=== PATIENT | male | born 1995 | race Asian ===

== ENCOUNTER 2016-11-01 02:07 | Emergency (ER) | payer OTHER ==
[~2016-11-01] VITALS: Ht 170.2 cm; Wt 59.5 kg
[2016-11-01 02:10] VITALS: BP 128/80; PULSE 88; TEMP 36.7; O2SAT 98; Ht 170.2 cm; Wt 59.5 kg
--- NOTE | 2016-11-01 02:22 | EMERGENCY ROOM VISIT NOTE ---
History Report prepared by Samanthaibconstantino: Harpreet Ram Under the Supervision of: Dr. Darnell Argueta M.D. First contact with patient: 02:16 Chief Complaint: BITE Stated Complaint: BIT BY SOMETHING ON L ARM History of Present Illness The patient is a 21 year old male who presents to the Emergency Room with complaints of a sudden bite that occurred two hours ago. He states that earlier tonight he finished showering and went to lay down. The patient states that he has to sleep on the floor since he does not have a bed yet for his apartment. He states that after he laid down, he suddenly felt a bite on the posterior portion of his right upper extremity. The patient states that he is unsure what bit him, but is worried that a spider may have bitten him and given him an infection. He states that he did not feel any pain during the incident, but admits he is now sore in the area of the bite. The patient denies any history of infections. Source of History: patient Onset: two hours ago Position: arm (right) Quality: other (erythemous, sore) Timing: other (sudden) Review of Systems See HPI for pertinent positives & negatives. A total of 6 systems reviewed and were otherwise negative. Past Medical & Surgical The patient reports no pertinent medical or surgical history. Family History Patient reports no known family medical history. Social History Smoking Status: Current Some Day Smoker Drug Use: none Marital Status: single Housing Status: lives with roommate Occupation Status: [employer] Current/Historical Medications No Active Prescriptions or Reported Meds Allergies Coded Allergies: No Known Allergies (Unverified , 11/01/16) Physical Exam Vital Signs Date Time Temp Pulse Resp B/P (MAP) Pulse Ox O2 Delivery O2 Flow Rate FiO2 11/01/16 02:10 36.7 88 18 128/80 98 Room Air Physical Exam GENERAL: Patient is well appearing and in no acute distress. HEENT: No acute trauma, normocephalic atraumatic, mucous membranes moist, no nasal congestion, no scleral icterus. NECK: No stridor, no adenopathy, no meningismus, trachea is midline. LUNGS: No dyspnea. Clear to auscultation and equal bilaterally. No wheeze, no rhonchi. HEART: Regular rate and rhythm. No murmurs, rubs, gallops appreciated. EXTREMITIES: Normal motion all extremities, no cyanosis, no edema. NEUROLOGIC: Alert and oriented, no acute motor or sensory deficits, no focal weakness, cranial nerves grossly intact. SKIN: No rash, no jaundice, no diaphoresis. Small mildly raised isabell on the right posterior triceps. Minimal/ no erythema, No fluctuance. No drainage. No puncture isabell. Medical Decision & Procedures ED Course 0217: The patient was evaluated in room B10. A complete history and physical exam was performed. 0230: Hydrocortisone 1 appln EXT. Medical Decision 21 yr old male with small area of what appears to be insect bite over right tricep. No evidence of infection, abscess, systemic issue or other findings. Hydrocortisone cream for localized irritation. Reviewed symptoms requiring RTED or PCP follow up. Medication Reconcilliation Current Medication List: was personally reviewed by me Blood Pressure Screening Patient's blood pressure: Elevated blood pressure Blood pressure disposition: Elevated BP felt to be situational Impression Primary Impression: Insect bite of arm, right Scribe Attestation The scribe's documentation has been prepared under my direction and personally reviewed by me in its entirety. I confirm that the note above accurately reflects all work, treatment, procedures, and medical decision making performed by me. Departure Information Dispostion Home / Self-Care Prescriptions No Active Prescriptions or Reported Meds Forms HOME CARE DOCUMENTATION FORM, IMPORTANT VISIT INFORMATION Patient Instructions My [facility] Additional Instructions There is not current evidence of infection. The bite may be sore over the next few days. If itching you can use Benadryl ( diphenhydramine). If increased swelling, pain, drainage, spreading redness or other concerns, please see [facility] or return for further evaluation.
[2016-11-01] MEDS ORDERED: HYDROCORTISONE HC 2.5% CRM 30GM TUBE EXT ONE (02:30)
== END 2016-11-01 02:29 | disposition home or self-care (01) ==
LOC: C.EDB 02:09
DX: S40.871A Other superficial bite of right upper arm, initial encounter (principal); W57.XXXA Bitten or stung by nonvenomous insect and other nonvenomous arthropods, initial encounter; F17.200 Nicotine dependence, unspecified, uncomplicated